=== PATIENT | female | born 1980 | race Caucasian/White ===

== ENCOUNTER 2019-02-16 01:14 | Emergency (ER) | payer MEDICAID ==
[~2019-02-16] VITALS: Wt 64.3 kg
[2019-02-16 01:16] VITALS: BP 146/81; PULSE 96; RESP 18
--- NOTE | 2019-02-21 14:21 | ERD ---
ER Documentation Chief Complaint Chief Complaint PELVIC PAIN X'S 2 DAYS, VAG BLEED X'S 1 DAY; 4 WEEKS PG HPI 38-year-old female presenting with vaginal bleeding x1 day. Patient is about 4 weeks . LNMP December 18. A0. Patient has passing clots and is having some pain. She states been going for 2 days and is progressively worsening. Medical history is gastritis. NKDA. Surgical history denies. Social history denies. Denies OB physician following her and denies ultrasound. ROS All systems reviewed and are negative except as per history of present illness. Allergies Allergies: Coded Allergies: No Known Allergy (Unverified , 02/16/19) PMhx/Soc Medical and Surgical Hx: pt denies Medical Hx, pt denies Surgical Hx Hx Alcohol Use: No Hx Substance Use: No Hx Tobacco Use: No Smoking Status: Never smoker Physical Exam Physical Exam GENERAL: The patient is well-appearing, well-nourished, in no acute distress CHEST: Clear to auscultation bilaterally. There are no rales, wheezes or rhonchi. HEART: Regular rate and rhythm. No murmurs, clicks, rubs or gallops. ABDOMEN:Soft, nontender and nondistended. Good bowel sounds. No rebound or guarding. No gross peritonitis. No gross organomegaly or masses. BACK: No midline or flank tenderness. Results 24 hrs Laboratory Tests Test 02/16/19 03:58 02/16/19 03:59 Urine Color YELLOW Urine Clarity SLIGHTLY CLOUDY Urine pH 6.0 Urine Specific [place] 1.023 Urine Ketones NEGATIVE mg/dL Urine Nitrite NEGATIVE mg/dL Urine Bilirubin NEGATIVE mg/dL Urine Urobilinogen NEGATIVE mg/dL Urine Leukocyte Esterase NEGATIVE [place]/ul Urine Microscopic RBC > 182 /HPF Urine Microscopic WBC 1 /HPF Urine Squamous Epithelial Cells FEW /HPF Urine Mucus FEW /HPF Urine Hemoglobin 3+ mg/dL Urine Glucose NEGATIVE mg/dL Urine Total Protein NEGATIVE mg/dl White Blood Count 11.9 10^3/ul Red Blood Count 4.34 10^6/ul Hemoglobin 13.2 g/dl Hematocrit 39.6 % Mean Corpuscular Volume 91.2 fl Mean Corpuscular Hemoglobin 30.4 pg Mean Corpuscular Hemoglobin Concent 33.3 g/dl Red Cell Distribution Width 13.3 % Platelet Count 276 10^3/UL Mean Platelet Volume 10.3 fl Immature Granulocytes % 0.500 % Neutrophils % 59.6 % Lymphocytes % 29.0 % Monocytes % 8.2 % Eosinophils % 2.2 % Basophils % 0.5 % Nucleated Red Blood Cells % 0.0 /100WBC Immature Granulocytes # 0.060 10^3/ul Neutrophils # 7.1 10^3/ul Lymphocytes # 3.5 10^3/ul Monocytes # 1.0 10^3/ul Eosinophils # 0.3 10^3/ul Basophils # 0.1 10^3/ul Nucleated Red Blood Cells # 0.0 10^3/ul Beta HCG, Quantitative 36453.0 mIU/ml Procedures/MDM DIAGNOSTIC IMAGING REPORT Patient: EDIE HAYNES : 1980 Age: 38 Sex: F MR #: [id number] DOS: 02/16/19 0345 Ordering MD: INDER ANN PA-C Location: [facility] Room/Bed: PROCEDURE: US OB < 14 weeks. CLINICAL INDICATION: Bleeding TECHNIQUE: Multiple sonographic images of the pelvis were obtained. The images were reviewed on a PACS workstation. COMPARISON: None FINDINGS: There is a focal collection of fluid within the endometrial cavity is favored to represent a gestational sac, mean diameter 1.3 cm corresponds with an estimated age of 5 weeks 5 days. No clearly defined pole or yolk sac is identified. Subtle hypoechoic focus adjacent to the gestational sac likely represents a tiny subchorionic hemorrhage. The right ovary measures 4.3 x 3.6 x 3.6 cm and the left ovary measures 3.1 x 1.8 x 2.1 cm. There is an anechoic 2.8 x 3.0 x 2.9 cm cyst within the right ovary. No additional adnexal lesions are identified. Vascular flow to both ovaries is confirmed with Doppler imaging. There is no pelvic free fluid. IMPRESSION: 1. Intrauterine gestational sac with mean diameter 1.3 cm, corresponding to an estimated age of 5 weeks 5 days. There is no visible yolk sac or embryo and viability cannot be confirmed. Correlation with serial beta HCG levels and short term ultrasound follow-up is recommended to confirm viable . 2. Tiny subchorionic hemorrhage. 3. Anechoic 3.0 cm cyst within the right ovary. DM: 38-year-old female presenting with vaginal bleeding. Patient is at risk for miscarriage. Patient is a early and she is recommended to have close follow-up with her primary doctor in the emergency room within 1 to 2 days. I recommend patient to return in 1 to 2 days beta-hCG repeat as ectopic has not been completely ruled out at this time. Patient is Rh+ and does not require RhoGam injection. Patient is hemodynamically stable. No urinary tract infection noted on urinalysis. Patient is discharged with strict ER precautions. All questions answered at discharge Departure Diagnosis: Primary Impression: Threatened Condition: Stable Patient Instructions: Possible Miscarriage (Threatened ) Referrals: [facility] YOU HAVE RECEIVED A MEDICAL SCREENING EXAM AND THE RESULTS INDICATE THAT YOU DO NOT HAVE A CONDITION THAT REQUIRES URGENT TREATMENT IN THE EMERGENCY DEPARTMENT. FURTHER EVALUATION AND TREATMENT OF YOUR CONDITION CAN WAIT UNTIL YOU ARE SEEN IN YOUR DOCTORS OFFICE WITHIN THE NEXT 1-2 DAYS. IT IS YOUR RESPONSIBILITY TO MAKE AN APPOINTMENT FOR FOLOW-UP CARE. IF YOU HAVE A PRIMARY DOCTOR --you should call your primary doctor and schedule an appointment IF YOU DO NOT HAVE A PRIMARY DOCTOR YOU CAN CALL OUR PHYSICIAN REFERRAL HOTLINE AT IF YOU CAN NOT AFFORD TO SEE A PHYSICIAN YOU CAN CHOSE FROM THE FOLLOWING [facility] [id number] [facility] [facility] [address] [facility] [facility] [address] [facility] [facility] [address] [facility]. [facility] [address] [facility]. [facility]. [address] [place] Additional Instructions: FOLLOW UP WITH YOUR PRIMARY CARE PHYSICIAN TOMORROW.Return to this facility if you are not improving as expected. ENID ANN PA-C Feb 21, 2019 14:21
== END 2019-02-16 06:51 | disposition home or self-care (01) ==
LOC: FTE 01:14
DX: O20.0 Threatened abortion (principal); R10.2 Pelvic and perineal pain; Z3A.01 Less than 8 weeks gestation of pregnancy
CPT/HCPCS: 36415; 76801; 76817; 81001; 84702; 85025; 86900; 86901; Z7502